=== PATIENT | male | born 1960 | race African-American/Black ===

== ENCOUNTER 2020-02-15 10:34 | Inpatient (IN) | payer MEDICARE, OTHER ==
[~2020-02-15] VITALS: Ht 182.9 cm; Wt 76.2 kg
[2020-02-15] MEDS ORDERED: IV NS 0.9% 500 ML BAG IV ONE (11:00)
[2020-02-15] MEDS ORDERED: LISI30TA4 PO (11:06)
[2020-02-15] MEDS ORDERED: AMLO10TA4 PO (11:06)
[2020-02-15] MEDS ORDERED: ESCI5TAB PO (11:06)
[2020-02-15] MEDS ORDERED: HYDR-4077 PO (11:06)
[2020-02-15] MEDS ORDERED: ATOR40TA PO (11:06)
[2020-02-15] MEDS ORDERED: DEXT1DRO3 OP (11:06)
[2020-02-15] MEDS ORDERED: PHEN60TA11 PO (11:06)
--- NOTE | 2020-02-15 11:11 | NUR ---
pt rec'd to er via [facility] FTF WEAKNESS IV SATARTED 20G RT WRIST VSSAWAITING EVALUATION BY ER PROVIDER. LABS DRAWN SENT TO LAB NS BOLUS INFUSING WELL
[2020-02-15 11:16] LABS: BASOPHILS # (AUTO) 0.1 /CMM (0.0-0.2); BASOPHILS % (AUTO) 1.6 % (0.0-2.0); EOSINOPHILS % (AUTO) 3.7 % (0.0-6.0); HEMATOCRIT 47 % (39-51); HEMOGLOBIN 14.8 g/dL (13.5-17.5); LYMPHOCYTES % (AUTO) 26.4 % (20.0-44.0); MEAN CORPUSCULAR HGB CONC 32 g/dl (31.0-36.0); MEAN CORPUSCULAR VOLUME 78 fL (80-96); MONOCYTES # (AUTO) 0.5 /CMM (0.1-1.30); MONOCYTES % (AUTO) 12.6 % (2.0-12.0); NEUTROPHILS # (AUTO) 2.1 /CMM (1.8-8.9); NEUTROPHILS % (AUTO) 55.7 % (43.0-81.0); PLATELET COUNT (AUTO) 201 /CMM (150-450); RED BLOOD CELL COUNT(AUTO) 6.01 MIL/uL (4.5-6.0); WHITE BLOOD COUNT (AUTO) 3.8 K/uL (4.3-11.0)
[2020-02-15 12:07] LABS: SERUM AMMONIA 46 umol/L (11-32)
[2020-02-15 12:13] LABS: CHLORIDE 106 mmol/L (98-107); POTASSIUM 4.4 mmol/L (3.5-5.1); SODIUM SERUM 141 mmol/L (136-145)
[2020-02-15 12:14] LABS: CALCIUM, SERUM 8.7 mg/dL (8.5-10.1); CARBON DIOXIDE 30 mmol/L (21-32); GLUCOSE 68 mg/dL (74-106); UREA NITROGEN, BLOOD 18 mg/dL (7-18)
[2020-02-15 12:15] LABS: ALANINE AMINOTRANSFERASE 29 U/L (12-78); ALBUMIN 3.4 g/dL (3.4-5.0); ALKALINE PHOSPHATASE 103 U/L (46-116); ASPARTATE AMINOTRANSFERASE 25 U/L (15-37); BILIRUBIN,TOTAL 0.3 mg/dL (0.2-1.0); TOTAL PROTEIN, SERUM 7.7 g/dL (6.4-8.2)
[2020-02-15 12:27] LABS: APPEARANCE,URINE CLEAR (CLEAR); BILIRUBIN,URINE NEGATIVE (NEGATIVE); BLOOD, URINE NEGATIVE Ery/uL (NEGATIVE); COLOR,URINE YELLOW (YELLOW); KETONES,URINE NEGATIVE (NEGATIVE); LEUKOCYTE ESTERASE ,URINE NEGATIVE (NEGATIVE); NITRITE, URINE NEGATIVE (NEGATIVE); PROTEIN,URINE NEGATIVE (NEGATIVE); UGLUCOSE NEGATIVE (NEGATIVE); UROBILINOGEN,URINE 0.2 EU/dL (0.2)
--- NOTE | 2020-02-15 12:35 | NUR ---
PAGED [facility].
[2020-02-15 12:37] LABS: THYROID STIMULATING HORMONE 1.298 uIU/mL (0.358-3.74)
--- NOTE | 2020-02-15 13:08 | NUR ---
CALLED NURSING SUP FOR M/S BED.
[2020-02-15] MEDS ORDERED: PHENOBARBITAL 30 MG TABLET ONE ×2 (13:24→16:39)
[2020-02-15] MEDS ORDERED: ATORVASTATIN 40 MG TABLET ONE (13:24)
[2020-02-15] MEDS ORDERED: AMLODIPINE BESYLATE 5 MG TABLET ONE (13:25)
[2020-02-15] MEDS ORDERED: IV D5/0.45 NACL 1,000 ML IV PRN (13:30)
[2020-02-15] MEDS ORDERED: Z GUARD REMEDY 2 OZ OINT TP PRN (13:30)
[2020-02-15] MEDS ORDERED: ACETAMINOPHEN 325 MG TABLET PO PRN (13:30)
[2020-02-15] MEDS ORDERED: MAGNESIUM HYDROXIDE 30 ML UDC PO PRN (13:30)
[2020-02-15] MEDS ORDERED: hydrALAZINE HCL 50 MG TABLET ONE (13:30)
[2020-02-15] MEDS ORDERED: hydrALAZINE HCL 50 MG TABLET PO PRN (13:30)
[2020-02-15] MEDS ORDERED: MAG HYDROX/AL HYDROX/SIMETH 30 ML UDC PO PRN (13:30)
[2020-02-15] MEDS ORDERED: HYDROCODONE/APAP 5/325MG TABLET PO PRN (13:30)
[2020-02-15] MEDS ORDERED: ONDANSETRON HCL/PF 4 MG/2 ML VIAL IVP PRN (13:30)
--- NOTE | 2020-02-15 13:34 | NUR ---
PT GIVEN LUNCH AND MEDS PER MD ORDER
[2020-02-15] MEDS: AMLODIPINE BESYLATE 10 MG TABLET PO SCH (13:55)
--- NOTE | 2020-02-15 15:04 | NUR ---
NURSING SUP GAVE M/S BED 205-2.
[2020-02-15] MEDS: ATORVASTATIN 40 MG TABLET PO SCH (15:15)
--- NOTE | 2020-02-15 15:21 | NUR ---
PT STABLE FOR TRANSFER TO FLOOR REPORT GIVEN TO YVON SCHILLING
[2020-02-15] MEDS ORDERED: PHENOBARBITAL 30 MG TABLET PO SCH ×3 (17:00)
--- NOTE | 2020-02-15 18:33 | NUR ---
ADMIT NOTES RECEIVED PATIENT FROM ER VIA GURNEY. PATIENT VITALS ARE WITHIN NORMAL LIMIT. SO SIGNS OF DISTRESS IN ROOM AIR. ORIENTED PATIENT TO HIS ROOM. CALL LIGHT WITHIN REACH SAFETY MEASURES ARE APPLIED BED LOCKED AND LOW POSITION. SIDE RAILS UP X 2. CALL LIGHT WITHIN REACH WILL CONTINUE TO MONITOR.
[2020-02-15 18:53] VITALS: BP 145/85
--- NOTE | 2020-02-15 18:57 | NUR ---
MS RN CLOSED NOTE PATIENT IS A/O X 3-4 WITH NO SIGNS OF ACUTE DISTRESS IN ROOM AIR. NO SIGNS OF PAIN AT THIS MOMENT. IV R FA #20 G INTACT RUNNING D5 1/2 NS @ 75 ML/HR. PATIENT KEPT CLEAN AND DRY. ALL NEEDS, CARE, TREATMENT AND MEDICATIONS ADMINISTERED ANTICIPATED PER ORDER. SAFETY MEASURES ARE APPLIED, BED IS LOW AND LOCKED POSITION. SIDE RAILS UP X 2 FOR SAFETY. CALL LIGHT WITHIN REACH. WILL ENDORSE TO THE NEXT TELEPHONE MAINTENANCE MECHANIC
--- NOTE | 2020-02-15 19:30 | NUR ---
RN Ms opening notes Received Pt from morning nurse. Pt is resting in bed comfortably. Pt is alert and orientedX3. Respiration is normal in room air. No SOB. No S/S of distress noted. IV sites at RFA# 20 is clean, intact and infusing well D5 1/2 NS at 75 ml/hr. Safety precautions is maintained. Bed at low position, brakes locked, side rails upX2 and call light is within reach. Will continue to monitor.
[2020-02-15 20:00] VITALS: BP 133/82
[2020-02-15] MEDS: ENOXAPARIN SODIUM 40 MG/0.4 ML DISP.SYRIN SQ SCH (20:35)
[2020-02-15] MEDS: PHENOBARBITAL 30 MG TABLET PO SCH (20:36)
[2020-02-15 22:20] VITALS: BP 133/82
--- NOTE | 2020-02-16 03:00 | NUR ---
RN MS notes Pt refused to have IV hydration. Explained risks and benefits. Pt keep refusing. Will continue to monitor.
[2020-02-16 06:32] LABS: BASOPHILS # (AUTO) 0.1 /CMM (0.0-0.2); BASOPHILS % (AUTO) 1.4 % (0.0-2.0); EOSINOPHILS % (AUTO) 3.5 % (0.0-6.0); HEMATOCRIT 43 % (39-51); HEMOGLOBIN 13.9 g/dL (13.5-17.5); LYMPHOCYTES # (AUTO) 1.1 /CMM (0.8-4.8); LYMPHOCYTES % (AUTO) 30.3 % (20.0-44.0); MEAN CORPUSCULAR HGB CONC 32 g/dl (31.0-36.0); MEAN CORPUSCULAR VOLUME 77 fL (80-96); MONOCYTES # (AUTO) 0.4 /CMM (0.1-1.30); MONOCYTES % (AUTO) 12.2 % (2.0-12.0); NEUTROPHILS # (AUTO) 1.9 /CMM (1.8-8.9); NEUTROPHILS % (AUTO) 52.6 % (43.0-81.0); PLATELET COUNT (AUTO) 198 /CMM (150-450); WHITE BLOOD COUNT (AUTO) 3.7 K/uL (4.3-11.0)
--- NOTE | 2020-02-16 06:50 | NUR ---
RN MS closing notes Pt is resting in bed comfortably. Pt is alert and orientedX3. Respiration is normal in room air. No SOB. No S/S of distress noted. IV sites at RFA# 20 is clean, intact and infusing well D5 1/2 NS at 75 ml/hr. VS is stable. Afebrile Routine meds were given as ordered. Kept Pt clean, dry and comfortable. Safety precautions is maintained. Bed at low position, brakes locked, side rails upX3 padded, HOB elevated and call light is within reach. Will endorse to morning nurse for MAHNAZ.
[2020-02-16 07:11] LABS: ALBUMIN 3.2 g/dL (3.4-5.0); BILIRUBIN,DIRECT 0.1 mg/dL (0.0-0.2); BILIRUBIN,TOTAL 0.3 mg/dL (0.2-1.0); CALCIUM, SERUM 8.4 mg/dL (8.5-10.1); CREATININE 0.9 mg/dL (0.6-1.3); PHOSPHORUS 3.2 mg/dL (2.5-4.9); POTASSIUM 3.8 mmol/L (3.5-5.1); TOTAL PROTEIN, SERUM 7.1 g/dL (6.4-8.2)
--- NOTE | 2020-02-16 07:15 | NUR ---
MS RN NOTES PATIENT IN BED EYES CLOSED, EASY TO AROUSE. ESPOND TO VEBAL AND TACTILE STIMULI. NO ACUTE DISTRESS NOTED. BREATHING UNLABORED. NO SOB NOTED. IV ACCESS PATENT AND INTACT, NO REDNESS, NO SWELLING NOTED. SAFETY MEASURES IN PLACE. CALL LIGHT WITHIN REACH. WILL CONTINUE TO MONITOR ACCORDINGLY.
[2020-02-16 08:00] VITALS: BP 168/111
--- NOTE | 2020-02-16 08:45 | NUR ---
MS RN NOTES PATIENT REFUSING IV FLUID CONNECTED, DR RO PRESENT ON THE FLOOR MADE AWARE, NO NEW ORDERS MADE.
[2020-02-16] MEDS: LISINOPRIL (20MG) 20 MG TABLET PO SCH (09:54)
[2020-02-16] MEDS: ESCITALOPRAM OXALATE (10 MG) 10 MG TABLET PO SCH (09:56)
[2020-02-16] MEDS: PHENOBARBITAL 30 MG TABLET PO SCH ×2 (10:00→16:12)
[2020-02-16] MEDS: POLYVINYL ALCOHOL 15 ML BOTTLE EACHEYE SCH (10:04)
--- NOTE | 2020-02-16 14:45 | NUR ---
MS RN NOTES PATIENT TRANSFER TO [address] [place] [address], REPORT GIVEN TO MEGHAN SCHILLING. ALERT ORIENTED X 3.NO ACUTE DISTRESS NOTED. BREATHING UNLABORED. NO SOB NOTED. IV ACCESS PATENT AND INTACT, NO REDNESS, NO SWELLING NOTED. NEEDS ATTENDED AND ANTICIPATED. BELONGINGS TAKEN WITH THE PATIENT.
--- NOTE | 2020-02-16 14:50 | NUR ---
MS RN NOTES RECEIVED PT PATIENT TRANSFERED FROM [facility] ALERT ORIENTED X 3.ON RA WITH NO ACUTE DISTRESS NOTED. BREATHING UNLABORED. NO SOB NOTED. IV ACCESS PATENT AND INTACT TO RFA WITH NO REDNESS OR SWELLING NOTED; NO SIGNS OF INFILTRATION. BED AT LOWEST POSITION WITH CALL LIGHT WITHIN REACH, WILL CONTINUE TO MONITOR PATIENT.
[2020-02-16 16:00] VITALS: BP 132/78
--- NOTE | 2020-02-16 19:18 | NUR ---
MS RN CLOSING NOTES PATIENT RESTING COMFORTABLY IN BED ALERT AND ORIENTED X 3, ON RA WITH NO ACUTE DISTRESS NOTED. NO SOB. BREATHING UNLABORED. IV ACCESS PATENT AND INTACT TO RFA WITH NO REDNESS OR SWELLING NOTED; NO SIGNS OF INFILTRATION. BED AT LOWEST POSITION WITH CALL LIGHT WITHIN REACH, WILL ENDORSE TO ONCOMING SHIFT.
--- NOTE | 2020-02-16 19:40 | NUR ---
MS SHAKIR OPEN NOTES PT IS WATCHING TV/ EATING IN BED. A/O X3. ON RA, NO SOB/ ACUTE RESPIRATORY DISTRESS NOTED. PT DENIES ANY PAIN AT THE MOMENT. BED IS IN LOWEST LOCKED POSITION WITH SIDE RAILS UP X3, SEMI FOWLERS. CALL LIGHT IS WITHIN REACH. WILL CONTINUE TO MONITOR.
[2020-02-16 20:00] VITALS: BP 140/96
[2020-02-16] MEDS: ENOXAPARIN SODIUM 40 MG/0.4 ML DISP.SYRIN SQ SCH (20:48)
[2020-02-16] MEDS: ATORVASTATIN 40 MG TABLET PO SCH ×2 (21:00→21:08)
--- NOTE | 2020-02-16 21:10 | NUR ---
MS RN NOTES PT REFUSED LIPITOR 40MG SCHEDULED AT 2200 DESPITE DISCUSSING BENEFITS. WILL CONTINUE TO MONITOR PT.
[2020-02-17 06:43] LABS: BASOPHILS % (AUTO) 1.2 % (0.0-2.0); EOSINOPHILS % (AUTO) 4.2 % (0.0-6.0); HEMATOCRIT 45 % (39-51); HEMOGLOBIN 14.4 g/dL (13.5-17.5); LYMPHOCYTES % (AUTO) 25.3 % (20.0-44.0); MEAN CORPUSCULAR HGB CONC 32 g/dl (31.0-36.0); MEAN CORPUSCULAR VOLUME 78 fL (80-96); MONOCYTES # (AUTO) 0.5 /CMM (0.1-1.30); MONOCYTES % (AUTO) 13.2 % (2.0-12.0); NEUTROPHILS # (AUTO) 2.3 /CMM (1.8-8.9); NEUTROPHILS % (AUTO) 56.1 % (43.0-81.0); PLATELET COUNT (AUTO) 198 /CMM (150-450); RED BLOOD CELL COUNT(AUTO) 5.76 MIL/uL (4.5-6.0); WHITE BLOOD COUNT (AUTO) 4.1 K/uL (4.3-11.0)
--- NOTE | 2020-02-17 06:48 | NUR ---
MS RN CLOSE NOTES PATIENT IS WATCHING TV IN BED. A/O X3. STABLE ON RA, NO SOB/ ACUTE RESPIRATORY DISTRESS NOTED. IV IN R FOREARM #20G IS PATENT AND INTACT. PT DENIES ANY PAIN AT THE MOMENT. BED IS IN LOWEST LOCKED POSITION WITH SIDE RAILS UP X3, SEMI FOWLERS. BED ALARM IS ON. CALL LIGHT IS WITHIN REACH. WILL ENDORSE TO AM NURSE.
[2020-02-17 07:52] LABS: CREATININE 0.9 mg/dL (0.6-1.3); MAGNESIUM 2.2 mg/dL (1.8-2.4); POTASSIUM 4.3 mmol/L (3.5-5.1)
[2020-02-17 08:00] VITALS: BP 145/94
[2020-02-17] MEDS: ESCITALOPRAM OXALATE (10 MG) 10 MG TABLET PO SCH (08:13)
[2020-02-17] MEDS: LISINOPRIL (20MG) 20 MG TABLET PO SCH (08:13)
[2020-02-17] MEDS: POLYVINYL ALCOHOL 15 ML BOTTLE EACHEYE SCH (08:13)
[2020-02-17] MEDS: AMLODIPINE BESYLATE 10 MG TABLET PO SCH (08:13)
[2020-02-17] MEDS: PHENOBARBITAL 30 MG TABLET PO SCH ×2 (08:13→17:00)
[2020-02-17 16:00] VITALS: BP 149/83
--- NOTE | 2020-02-17 18:39 | NUR ---
rn notes patient remains on room air, no sob noted, patient a/o x3. r fa 20 and is intact. patient refused morning medications but took night meds. bed at the lowest setting, call light within reach, side rails up x2.
--- NOTE | 2020-02-17 19:48 | NUR ---
RN OPENING NOTES PATIENT RECEIVED RESTING IN BED, A/O X 3. STABLE ON RA WITH BREATHING EVEN AND UNLABORED, NO SOB NOTED. NO SIGNS OF PAIN OR DISCOMFORT. IV LOCATED ON R WRIST. SAFETY PRECAUTIONS IN PLACE WITH BED IN LOWEST POSITION, CALL LIGHT WITHIN REACH, BREAKS ON, SIDE RAILS UP. WILL CONTINUE TO MONITOR THROUGHOUT THE NIGHT.
[2020-02-17 20:00] VITALS: BP 123/89
[2020-02-17] MEDS: ENOXAPARIN SODIUM 40 MG/0.4 ML DISP.SYRIN SQ SCH (21:14)
[2020-02-17] MEDS: ATORVASTATIN 40 MG TABLET PO SCH (21:17)
--- NOTE | 2020-02-17 21:17 | NUR ---
RN NOTES PT REFUSED LIPITOR 40MG SCHEDULED AT 2200 DESPITE DISCUSSING BENEFITS. WILL CONTINUE TO MONITOR PT.
--- NOTE | 2020-02-18 07:02 | NUR ---
RN CLOSING NOTES PATIENT RESTING IN BED, A/O X 3. STABLE ON RA WITH BREATHING EVEN AND UNLABORED, NO SOB NOTED. NO SIGNS OF PAIN OR DISCOMFORT. IV LOCATED ON R WRIST. SAFETY PRECAUTIONS IN PLACE WITH BED IN LOWEST POSITION, CALL LIGHT WITHIN REACH, BREAKS ON, SIDE RAILS UP. ALL NEEDS ATTENDED TO. PATIENT KEPT CLEAN AND DRY THROUGHOUT THE NIGHT. WILL ENDORSE TO ONCOMING SHIFT ABOUT MAHNAZ.
[2020-02-18 08:00] VITALS: BP 147/82
[2020-02-18] MEDS: POLYVINYL ALCOHOL 15 ML BOTTLE EACHEYE SCH (09:00)
[2020-02-18 09:24] VITALS: BP 147/82
[2020-02-18] MEDS: LISINOPRIL (20MG) 20 MG TABLET PO SCH (09:24)
[2020-02-18] MEDS: AMLODIPINE BESYLATE 10 MG TABLET PO SCH (09:24)
[2020-02-18] MEDS: ESCITALOPRAM OXALATE (10 MG) 10 MG TABLET PO SCH (09:24)
[2020-02-18] MEDS: PHENOBARBITAL 30 MG TABLET PO SCH (09:24)
--- NOTE | 2020-02-18 10:34 | NUR ---
PATIENT IS IN BED RESTING. PATIENT IS ALERT AD ORIENTED X2. PATIENT DOES NOT DISPLAY SIGNS OF DISTRESS, PAIN, OR SHORTNESS OF BREATH. PATIENT HAS A UNPRODUCTIVE DRY COUGH. AM CARE NEEDS MET. PATIENT REFUSED PHYSICAL THERAPY. BED IN LOW POSITION. CALL LIGHT IN REACH. TWO SIDE RAILS UP. WILL CONTINUE TO MONITOR PATIENT THROUGHOUT SHIFT.
--- NOTE | 2020-02-18 14:45 | NUR ---
Patient discharged from hospital via ambulance on a gurney. Patient alert and oriented x2. Patient does not display signs and symptoms of pain, distress, or shortness of breath. Care needs met. Discharge teaching given. Discharge paperwork and belongings sent to SNF with patient. IV removed. Report given to [facility].
== END 2020-02-18 14:45 | DRG 640 ==
LOC: ER 10:53 → MEDSG2 15:11 → MED 02-16 14:45
PROVIDERS: ADMIT Internal Medicine; ATTEND Internal Medicine
DX: E16.2 Hypoglycemia, unspecified (principal); G93.41 Metabolic encephalopathy; E43 Unspecified severe protein-calorie malnutrition; E72.20 Disorder of urea cycle metabolism, unspecified; I69.354 Hemiplegia and hemiparesis following cerebral infarction affecting left non-dominant side; F32.9 Major depressive disorder, single episode, unspecified; G40.909 Epilepsy, unspecified, not intractable, without status epilepticus; I25.10 Atherosclerotic heart disease of native coronary artery without angina pectoris; R62.7 Adult failure to thrive; D64.9 Anemia, unspecified; E78.5 Hyperlipidemia, unspecified; F29 Unspecified psychosis not due to a substance or known physiological condition; E88.09 Other disorders of plasma-protein metabolism, not elsewhere classified; Z68.22 Body mass index [BMI] 22.0-22.9, adult; J44.9 Chronic obstructive pulmonary disease, unspecified; N31.9 Neuromuscular dysfunction of bladder, unspecified; Z88.0 Allergy status to penicillin
CPT/HCPCS: 36415; 70450-TC; 71045-TC; 80048-TC; 80076-TC; 80184; 81000-TC; 82140-TC; 82962-TC; 83735-TC; 84100-TC; 84443-TC; 84484-TC; 85025-TC; 85730-TC; 87081-TC; 97112-TC; 97530-TC; G0378; J1650; J3490; U0003

== ENCOUNTER 2020-11-01 13:49 | Inpatient (IN) | payer MEDICARE, OTHER ==
[~2020-11-01] VITALS: Ht 172.7 cm; Wt 68.5 kg
[~2020-11-01 13:49] MED LIST: AMLO10TA4 PO; ATOR40TA PO; DEXT1DRO3 OP; ESCI5TAB PO; HYDR-4077 PO; LISI30TA4 PO; PHEN60TA11 PO
[2020-11-01 15:00] LABS: BASOPHILS % (AUTO) 0.8 % (0.0-2.0); EOSINOPHILS % (AUTO) 3.1 % (0.0-6.0); HEMATOCRIT 43 % (39-51); HEMOGLOBIN 13.7 g/dL (13.5-17.5); LYMPHOCYTES # (AUTO) 1.3 K/uL (0.8-4.8); LYMPHOCYTES % (AUTO) 32.1 % (20.0-44.0); MEAN CORPUSCULAR HGB CONC 32 g/dl (31.0-36.0); MEAN CORPUSCULAR VOLUME 78 fL (80-96); MONOCYTES # (AUTO) 0.4 K/uL (0.1-1.30); MONOCYTES % (AUTO) 9.9 % (2.0-12.0); NEUTROPHILS # (AUTO) 2.3 K/uL (1.8-8.9); NEUTROPHILS % (AUTO) 54.1 % (43.0-81.0); PLATELET COUNT (AUTO) 246 K/uL (150-450); RED BLOOD CELL COUNT(AUTO) 5.47 MIL/uL (4.5-6.0); WHITE BLOOD COUNT (AUTO) 4.2 K/uL (4.3-11.0)
--- NOTE | 2020-11-01 15:09 | NUR ---
DARY FROM SNF TO ER BED 6. AAOX1. NOT IN RESP DISTRESS. SENT BY THE PLATEN BUILDER UP FOR FURTHER EVALUATION OF WEAKNESS AND DIFFICULTY IN MOBILITY FOR THE PAST 3 DAYS. MD WAS AT THE BEDSIDE FOR EVAL. ORDERS RECEIVED, NOTED AND CARRIED OUT. IV LINE ESTABLISHED ON THE R HAND 20G, BLOOD DRAWN AND GIEVN TO PHLEB. URINE COLLECETD VIA IN AND OUT CATH WITH STRICT STERILE TECHNIQUE.
[2020-11-01 15:15] LABS: CALCIUM, SERUM 8.7 mg/dL (8.5-10.1); CARBON DIOXIDE 30 mmol/L (21-32); CHLORIDE 106 mmol/L (98-107); GLUCOSE 85 mg/dL (74-106); POTASSIUM 4.5 mmol/L (3.5-5.1); SODIUM SERUM 142 mmol/L (136-145); UREA NITROGEN, BLOOD 15 mg/dL (7-18)
[2020-11-01 15:21] LABS: ALANINE AMINOTRANSFERASE 31 U/L (12-78); ALBUMIN 3.2 g/dL (3.4-5.0); ALKALINE PHOSPHATASE 105 U/L (46-116); ASPARTATE AMINOTRANSFERASE 20 U/L (15-37); BILIRUBIN,DIRECT 0.1 mg/dL (0.0-0.2); BILIRUBIN,TOTAL 0.2 mg/dL (0.2-1.0); TOTAL PROTEIN, SERUM 7.5 g/dL (6.4-8.2)
[2020-11-01 15:25] LABS: BILIRUBIN,URINE NEGATIVE (NEGATIVE); COLOR,URINE DARK YELLOW (YELLOW); LEUKOCYTE ESTERASE ,URINE NEGATIVE (NEGATIVE); NITRITE, URINE NEGATIVE (NEGATIVE); PROTEIN,URINE NEGATIVE (NEGATIVE); UGLUCOSE NEGATIVE (NEGATIVE); UROBILINOGEN,URINE 0.2 EU/dL (0.2)
[2020-11-01 15:31] LABS: BACTERIA,URINE None seen /HPF (None Seen); RBC,URINE 0-2 /HPF (0-2); WBC,URINE 0-2 /HPF (0-3)
[2020-11-01 15:32] LABS: MUCUS,URINE Many /LPF (None Seen); SQUAMOUS EPITHELIAL CELL,UR 0-2 /HPF (None Seen)
--- NOTE | 2020-11-01 15:47 | NUR ---
BED 103
--- NOTE | 2020-11-01 16:10 | NUR ---
REPORT GIVEN TO SHAKIR AGOSTO FOR MAHNAZ
--- NOTE | 2020-11-01 16:32 | NUR ---
PT BEING TRANSPORTED TO UNIT ON [facility] WITH EMT AT BEDSIDE. PT IS IN STABLE CONDITION FOR TRANSPORT.
[2020-11-01 16:48] VITALS: BP 129/74
[2020-11-01] MEDS ORDERED: ONDANSETRON HCL/PF 4 MG/2 ML VIAL IVP PRN (17:00)
[2020-11-01] MEDS ORDERED: Z GUARD REMEDY 2 OZ OINT TP PRN (17:00)
[2020-11-01] MEDS ORDERED: MAG HYDROX/AL HYDROX/SIMETH 30 ML UDC PO PRN (17:00)
[2020-11-01] MEDS ORDERED: MAGNESIUM HYDROXIDE 30 ML UDC PO PRN (17:00)
[2020-11-01] MEDS ORDERED: ACETAMINOPHEN 325 MG TABLET PO PRN (17:00)
[2020-11-01] MEDS ORDERED: IV NS 0.9% 1,000 ML IV PRN (17:00)
--- NOTE | 2020-11-01 17:12 | NUR ---
MS RN NOTE RECEIVED PATIENT FROM ER WITH DX FAILURE TO THRIVE , ALERT WITH CONFUSION, ADMITTED UNDER CARE DR RO.LT HAND HL INTACT AND FLUSHED WELL , BED IN LOWEST AND LOCKED POSITION , CALL LIGHT WITHIN REACH, VS TAKEN .BELONGING CHECKED,ON RA NO SOB NOTED AT THIS TIME HOSPITAL ORIENTATION DONE WILL CONT TO MONITOR SAFETY MEASURE PROVIDED
--- NOTE | 2020-11-01 18:22 | NUR ---
MS RN NOTE FED BY MOTORCYCLE DELIVERER ,ALL NEEDS ATTENDED, STARTED ON IVF ORDERED ,BED IN LOWEST AND LOCKED POSITION, WILL CONT TO MONITOR CLOSELY
[2020-11-01] MEDS: ATORVASTATIN 40 MG TABLET PO SCH (22:56)
--- NOTE | 2020-11-02 01:14 | NUR ---
patient alert x2 nol c/o has iv infusing at 60 hr.has [address] hand patient likes to drank juices. patient incont. of urine.
[2020-11-02 08:00] VITALS: BP 140/101
--- NOTE | 2020-11-02 08:17 | NUR ---
Refused laboratory x2 occurrences this morning. Milton Self RN
[2020-11-02] MEDS: POLYVINYL ALCOHOL 15 ML BOTTLE EACHEYE SCH (10:06)
[2020-11-02] MEDS: ESCITALOPRAM OXALATE (10 MG) 10 MG TABLET PO SCH (10:07)
[2020-11-02] MEDS: LISINOPRIL (10MG) 10 MG TABLET PO SCH (10:07)
[2020-11-02] MEDS: AMLODIPINE BESYLATE 10 MG TABLET PO SCH (10:07)
[2020-11-02 13:34] LABS: BASOPHILS # (AUTO) 0.1 K/uL (0.0-0.2); BASOPHILS % (AUTO) 2.3 % (0.0-2.0); EOSINOPHILS % (AUTO) 3.2 % (0.0-6.0); HEMATOCRIT 46 % (39-51); HEMOGLOBIN 14.8 g/dL (13.5-17.5); LYMPHOCYTES % (AUTO) 25.4 % (20.0-44.0); MEAN CORPUSCULAR HGB CONC 32 g/dl (31.0-36.0); MEAN CORPUSCULAR VOLUME 78 fL (80-96); MONOCYTES # (AUTO) 0.4 K/uL (0.1-1.30); MONOCYTES % (AUTO) 10.8 % (2.0-12.0); NEUTROPHILS # (AUTO) 2.2 K/uL (1.8-8.9); NEUTROPHILS % (AUTO) 58.3 % (43.0-81.0); PLATELET COUNT (AUTO) 241 K/uL (150-450); RED BLOOD CELL COUNT(AUTO) 5.91 MIL/uL (4.5-6.0); WHITE BLOOD COUNT (AUTO) 3.8 K/uL (4.3-11.0)
[2020-11-02 15:02] LABS: CALCIUM, SERUM 8.7 mg/dL (8.5-10.1); CREATININE 1.1 mg/dL (0.6-1.3); MAGNESIUM 2.2 mg/dL (1.8-2.4); PHOSPHORUS 2.7 mg/dL (2.5-4.9); POTASSIUM 4.4 mmol/L (3.5-5.1)
[2020-11-02 16:00] VITALS: BP 136/92
[2020-11-02] MEDS: ASPIRIN EC 81 MG TABLET.DR PO SCH (16:12)
--- NOTE | 2020-11-02 19:30 | NUR ---
RN NOTE RECEIVED PATIENT IN BED. A/OX 1/2 PATIENT IS VERY CONFUSED, DELAYED SPEECH. TOLERATING ROOM AIR. RESPIRATIONS ARE EVEN AND UNLABORED. NO S/S SOB NOTED. NO C/O PAIN AT THIS TIME. IN NO APPARENT DISTRESS. IV ACCESS IN RIGHT [id number] RUNNING NS@60ML/HR. BED IS LOW AND LOCKED, HOB ELEVATED IN HIGH FOWLERS, SIDE RAILS UP X3 CALL LIGHT WITHIN REACH. WILL CONTINUE TO MONITOR THROUGHOUT SHIFT.
[2020-11-02 20:00] VITALS: BP 123/87
[2020-11-02] MEDS: ATORVASTATIN 40 MG TABLET PO SCH (21:27)
--- NOTE | 2020-11-03 06:28 | NUR ---
RN NOTE PATIENT RESTING IN BED. A/OX 1/. REMAINS TOLERATING ROOM AIR. NO RESP DISTRESS. NO C/O PAIN. NO DISTRESS. IV ACCESS PULLED OUT. BED REMAINS LOW AND LOCKED, HOB ELEVATED IN HIGH FOWLERS, SIDE RAILS UP X3 CALL LIGHT WITHIN REACH. WILL ENDORSE TO INCOMING SHIFT,
[2020-11-03 07:12] LABS: BASOPHILS # (AUTO) 0.1 K/uL (0.0-0.2); BASOPHILS % (AUTO) 1.9 % (0.0-2.0); EOSINOPHILS % (AUTO) 2.8 % (0.0-6.0); HEMATOCRIT 42 % (39-51); HEMOGLOBIN 13.8 g/dL (13.5-17.5); LYMPHOCYTES # (AUTO) 1.1 K/uL (0.8-4.8); LYMPHOCYTES % (AUTO) 24.6 % (20.0-44.0); MEAN CORPUSCULAR HGB CONC 33 g/dl (31.0-36.0); MEAN CORPUSCULAR VOLUME 77 fL (80-96); MONOCYTES # (AUTO) 0.4 K/uL (0.1-1.30); MONOCYTES % (AUTO) 10.2 % (2.0-12.0); NEUTROPHILS # (AUTO) 2.6 K/uL (1.8-8.9); NEUTROPHILS % (AUTO) 60.5 % (43.0-81.0); PLATELET COUNT (AUTO) 232 K/uL (150-450); RED BLOOD CELL COUNT(AUTO) 5.45 MIL/uL (4.5-6.0); WHITE BLOOD COUNT (AUTO) 4.3 K/uL (4.3-11.0)
[2020-11-03 07:33] LABS: CALCIUM, SERUM 8.7 mg/dL (8.5-10.1); CREATININE 0.9 mg/dL (0.6-1.3)
[2020-11-03 08:00] VITALS: BP 154/98
[2020-11-03] MEDS: LISINOPRIL (10MG) 10 MG TABLET PO SCH (09:41)
[2020-11-03] MEDS: ESCITALOPRAM OXALATE (10 MG) 10 MG TABLET PO SCH (09:42)
[2020-11-03] MEDS: ASPIRIN EC 81 MG TABLET.DR PO SCH (09:42)
[2020-11-03] MEDS: AMLODIPINE BESYLATE 10 MG TABLET PO SCH (09:42)
[2020-11-03] MEDS: POLYVINYL ALCOHOL 15 ML BOTTLE EACHEYE SCH (09:44)
[2020-11-03] MEDS ORDERED: ASPI-1420 PO (11:46)
[2020-11-03 16:00] VITALS: BP 109/92
--- NOTE | 2020-11-03 19:20 | NUR ---
RN NOTE RECEIVED PATIENT IN BED RESTING ALERT ORIENTED X1 VERBALLY RESPONSIVE ON ROOM AIR O2:97%,NO IV ACCESS,INCONTINENT TO BOWEL/BLADDER,SAFETY MEASURE IMPLEMENT ,BED IN LOW POSITION LOCKED /BED ALARM IS ON,CALL LIGHT WITHIN REACH,CONTINUE TO MONITOR.
[2020-11-03 20:00] VITALS: BP 108/69
[2020-11-03] MEDS: ATORVASTATIN 40 MG TABLET PO SCH (22:05)
[2020-11-04 04:00] VITALS: BP 108/69
--- NOTE | 2020-11-04 06:29 | NUR ---
RN NOTE PATIENT REMAINS ON ALERT CONFUSED VERBALLY RESPONSIVE NO SOB NOT ACUTE DISTRESS NOTED,ALL DUE MEDS GIVEN MD ORDERED,NO IV ACCESS,KEPT CLEAN AND DRY ALL THE TIME,KEPT COMFORTABLE,KEPT CALL LIGHT WITHIN REACH,ALL NEEDS MET.ENDORSE NEXT COMING SHIFT FOR CONTINUATION OF CARE.
--- NOTE | 2020-11-04 07:50 | NUR ---
MS/RN OPENING NOTE RECEIVED PATIENT IN BED, AWAKE, NON-VERBAL AT THIS TIME. STABLE ON ROOM AIR. NO RESPIRATORY DISTRESS NOTED. NO S/S OF DISCOMFORTS NOTED. NO IV ACCESS AT THIS TIME. SAFETY PRECAUTIONS OBSERVED: BED LOCKED ON LOWEST POSITION, SIDE RAILS UPX3, HOB ELEVATED, CALL LIGHT WITHIN REACH. WILL CONTINUE TO MONITOR PATIENT.
[2020-11-04] MEDS: ESCITALOPRAM OXALATE (10 MG) 10 MG TABLET PO SCH (09:37)
[2020-11-04] MEDS: ASPIRIN EC 81 MG TABLET.DR PO SCH (09:37)
[2020-11-04] MEDS: LISINOPRIL (10MG) 10 MG TABLET PO SCH (09:38)
[2020-11-04] MEDS: POLYVINYL ALCOHOL 15 ML BOTTLE EACHEYE SCH (09:38)
[2020-11-04] MEDS: AMLODIPINE BESYLATE 10 MG TABLET PO SCH (09:38)
[2020-11-04 12:05] VITALS: BP 118/73
--- NOTE | 2020-11-04 14:30 | NUR ---
MS/MARRIAGE THERAPIST NOTES PATIENT IS MEDICALLY STABLE. DR. PÉREZ ORDERED A DISCHARGE BACK TO SNF. PATIENT IS ALERT AND ORIENTED X1-2, COOPERATIVE WITH CARE. ALL NEEDS MET. DISCHARGE PAPERS SIGNED AND ALL BELONGINGS ACCOUNTED FOR. NON-EMERGENCY TRANSPORTATION PICKED UP PATIENT VIA GURNEY AND WILL BE TRANSFERRED TO [facility].
== END 2020-11-04 15:10 | DRG 640 ==
LOC: ER 13:55 → MEDSG1 16:11
PROVIDERS: ADMIT Internal Medicine; ATTEND Student in an Organized Health Care Education/Training Program
DX: E86.0 Dehydration (principal); G93.41 Metabolic encephalopathy; R62.7 Adult failure to thrive; J44.9 Chronic obstructive pulmonary disease, unspecified; G40.909 Epilepsy, unspecified, not intractable, without status epilepticus; E78.5 Hyperlipidemia, unspecified; Z86.73 Personal history of transient ischemic attack (TIA), and cerebral infarction without residual deficits; Z20.822 Contact with and (suspected) exposure to COVID-19; I10 Essential (primary) hypertension; Z88.0 Allergy status to penicillin; Z68.23 Body mass index [BMI] 23.0-23.9, adult
CPT/HCPCS: 36415; 80048-TC; 80061-TC; 80076-TC; 81001; 83735-TC; 84100-TC; 84484-TC; 85025-TC; 87081-TC; 87086-TC; G0378; J7030; U0003

== ENCOUNTER → 2022-02-08 | Emergency (ER) | payer MEDICARE, OTHER ==
[~2022-02-08] VITALS: Ht 167.6 cm; Wt 65.8 kg
[~2022-02-08] MED LIST changes: +ACET-868 PO; +ASCO-352 PO; +ASPI-1169 PO; +ASPI-1420 PO; +CHOL100043 PO; +MELA5TAB PO; +NALOXONE PREFILLED SYRINGE 2 MG/2 ML SYRINGE ONE; +POLY15DR40 EACHEYE
--- NOTE | 2022-02-08 16:00 | NUR ---
juan antonio, from snf, c/o generalized weakness since yesterday. PT IS ALERT, ABLE TO INTERACT W/ ENVIRONMENT, ANSWER QUESTIONS, RECOUNT RIDE OVER, ENDORSES HUNGER.
[2022-02-08 17:08] LABS: BASOPHILS % (AUTO) 0.5 % (0.0-2.0); EOSINOPHILS % (AUTO) 3.1 % (0.0-6.0); HEMATOCRIT 47 % (39-51); LYMPHOCYTES % (AUTO) 29.7 % (20.0-44.0); MEAN CORPUSCULAR HGB CONC 32 g/dl (31.0-36.0); MEAN CORPUSCULAR VOLUME 77 fL (80-96); MONOCYTES # (AUTO) 0.3 K/uL (0.1-1.30); NEUTROPHILS # (AUTO) 1.9 K/uL (1.8-8.9); NEUTROPHILS % (AUTO) 57.7 % (43.0-81.0); PLATELET COUNT (AUTO) 189 K/uL (150-450); RED BLOOD CELL COUNT(AUTO) 6.11 MIL/uL (4.5-6.0); WHITE BLOOD COUNT (AUTO) 3.3 K/uL (4.3-11.0)
[2022-02-08 17:23] LABS: ALBUMIN 3.8 g/dL (3.4-5.0); BILIRUBIN,DIRECT 0.1 mg/dL (0.0-0.2); BILIRUBIN,TOTAL 0.3 mg/dL (0.2-1.0); CALCIUM, SERUM 9.2 mg/dL (8.5-10.1); CREATININE 0.9 mg/dL (0.6-1.3); POTASSIUM 3.7 mmol/L (3.5-5.1)
--- NOTE | 2022-02-08 18:11 | NUR ---
CALLED AND SPOKE TYRONE FLOYD FROM [facility]. GOING BACK TO [facility]. ETA 70MIN.
--- NOTE | 2022-02-08 18:26 | NUR ---
RN CALLED [facility], NO ONE PICKED UP. RN WILL ATTEMPT TO CALL AGAIN IN 20 MIN.
--- NOTE | 2022-02-08 18:30 | NUR ---
SHAKIR CALLED AND GAVE REPORT TO ASIHA AT [facility]
[2022-02-08 18:38] VITALS: BP 131/90
--- NOTE | 2022-02-08 18:42 | NUR ---
[facility] HERE TO REPLACER PT. ID REMOVED, IV REMOVED, CANNULA INTACT.
== END ==
LOC: ER 14:45
DX: R53.1 Weakness (principal); E78.5 Hyperlipidemia, unspecified; J44.9 Chronic obstructive pulmonary disease, unspecified; Z88.0 Allergy status to penicillin; Z88.8 Allergy status to other drugs, medicaments and biological substances; Z79.899 Other long term (current) drug therapy
CPT/HCPCS: 36415; 71045-TC; 80048-TC; 80076-TC; 82962-TC; 83690-TC; 85025-TC; J2310

== ENCOUNTER 2022-02-09 12:26 | Inpatient (IN) | payer MEDICARE, OTHER ==
[~2022-02-09] VITALS: Ht 167.6 cm; Wt 65.8 kg
[~2022-02-09 12:26] MED LIST changes: -ASPI-1420 PO; -ATOR40TA PO; -DEXT1DRO3 OP; -ESCI5TAB PO; -NALOXONE PREFILLED SYRINGE 2 MG/2 ML SYRINGE ONE
--- NOTE | 2022-02-09 13:10 | NUR ---
MOVE SHEET SUBMITTED
--- NOTE | 2022-02-09 13:14 | NUR ---
IV LINE ESTABLISHED ON RAC #20, BLOOD DRAWN AND COLLECTED BY PHLEB AT BEDSIDE.
[2022-02-09 13:21] LABS: BASOPHILS % (AUTO) 1.5 % (0.0-2.0); HEMATOCRIT 49 % (39-51); HEMOGLOBIN 15.8 g/dL (13.5-17.5); LYMPHOCYTES % (AUTO) 32.9 % (20.0-44.0); MEAN CORPUSCULAR HGB CONC 32 g/dl (31.0-36.0); MEAN CORPUSCULAR VOLUME 77 fL (80-96); MONOCYTES # (AUTO) 0.3 K/uL (0.1-1.30); MONOCYTES % (AUTO) 10.7 % (2.0-12.0); NEUTROPHILS # (AUTO) 1.6 K/uL (1.8-8.9); NEUTROPHILS % (AUTO) 51.9 % (43.0-81.0); PLATELET COUNT (AUTO) 209 K/uL (150-450); RED BLOOD CELL COUNT(AUTO) 6.36 MIL/uL (4.5-6.0); WHITE BLOOD COUNT (AUTO) 3.1 K/uL (4.3-11.0)
[2022-02-09 13:40] LABS: ALANINE AMINOTRANSFERASE 35 U/L (12-78); ALBUMIN 3.8 g/dL (3.4-5.0); ALKALINE PHOSPHATASE 96 U/L (46-116); ASPARTATE AMINOTRANSFERASE 23 U/L (15-37); BILIRUBIN,DIRECT 0.1 mg/dL (0.0-0.2); BILIRUBIN,TOTAL 0.2 mg/dL (0.2-1.0); CALCIUM, SERUM 9.1 mg/dL (8.5-10.1); CARBON DIOXIDE 32 mmol/L (21-32); CHLORIDE 105 mmol/L (98-107); GLUCOSE 73 mg/dL (74-106); POTASSIUM 4.2 mmol/L (3.5-5.1); SODIUM SERUM 142 mmol/L (136-145); TOTAL PROTEIN, SERUM 8.2 g/dL (6.4-8.2); UREA NITROGEN, BLOOD 17 mg/dL (7-18)
--- NOTE | 2022-02-09 14:00 | NUR ---
URINAL PROVIDED AT BEDSIDE FOR PT; UNABLE TO PROVIDE URINE AT THIS TIME
--- NOTE | 2022-02-09 14:51 | NUR ---
ROOM 313-2
--- NOTE | 2022-02-09 15:01 | NUR ---
PT REPORT GIVEN TO SHAKIR ESPARZA
[2022-02-09] MEDS ORDERED: ACETAMINOPHEN 325 MG TABLET PO PRN ×2 (15:30)
[2022-02-09] MEDS: ENOXAPARIN SODIUM 40 MG/0.4 ML DISP.SYRIN SQ SCH (15:30)
[2022-02-09] MEDS ORDERED: ONDANSETRON HCL/PF 4 MG/2 ML VIAL IVP PRN (15:30)
[2022-02-09] MEDS ORDERED: Z GUARD REMEDY 4 OZ OINT TP PRN (15:30)
[2022-02-09] MEDS ORDERED: MAGNESIUM HYDROXIDE 30 ML UDC PO PRN (15:30)
[2022-02-09] MEDS ORDERED: MAG HYDROX/AL HYDROX/SIMETH 30 ML UDC PO PRN (15:30)
--- NOTE | 2022-02-09 15:53 | NUR ---
PT TRANSFERRED TO UNIT VIA GURNEY. WARM HANDOFF GIVEN TO RN ASSIGNED.
[2022-02-09] MEDS ORDERED: PHENOBARBITAL 60 MG TABLET PO SCH (17:00)
[2022-02-09] MEDS: PHENOBARBITAL 30 MG TABLET PO SCH (17:45)
[2022-02-09] MEDS: hydrALAZINE HCL 50 MG TABLET PO SCH (17:45)
[2022-02-09] MEDS: CHOLECALCIFEROL 1,000 UNIT TABLET (VIT D3) PO SCH (17:46)
[2022-02-09] MEDS: ASCORBIC ACID 500 MG TABLET PO SCH (17:46)
[2022-02-09] MEDS: POLYVINYL ALCOHOL 15 ML BOTTLE EACHEYE SCH (18:01)
--- NOTE | 2022-02-09 18:59 | NUR ---
RN CLOSING NOTE PATIENT A/O X1-2 WITH MINIMAL ABILITY TO PROPERLY VERBALIZE NEEDS. ADMITTED TO UNIT [facility] ED @ 1600 VIA GURNEY. TRANFERRED BY AUTOMOBILE MECHANIC HELPER AND OTHER NURSING ASSISTANCE. IV ACCESS TO LAC # 20 IN TACT AND PATENT. NO S/SX OF BLEEDING OR TRAUMA TO SITE. ALL SKIN INTACT, EXCEPT DISCOLORATION TO ANAL AREA. PATIENT REFUSED TO HAVE PICTURE TAKEN UPON ADMISSION. WILL ENDORSE TO RECEIVING NURSE. WOUND CONSULT PLACED. WILL FOLLOW UP. PATIENT TOLERATED DINNER WELL ON SHIFT. SAFETY MEASURES INTACT WITH BED LOW AND LOCKED, HOB @ 30 DEGREES, SIDERAIL UP X2, CALL LIGHT WITHIN REACH. WILL CONT TO MONITOR.
--- NOTE | 2022-02-09 19:30 | NUR ---
MS RN OPENING NOTES RECEIVED PATIENT LYING IN BED COMFORTABLY. A/O X1-2, DIFFICULTY SPEAKING NOTED. BREATHING EVEN AND NON-LABORED ON ROOM AIR. PATIENT GETS AGITATED AND GRABS STAFF'S ARM WHILE TRYING TO GIVE CARE. NO PAIN OR DISCOMFORT NOTED. HAS RIGHT ANTECUBITAL IV ACCESS #20G, COVERED WITH GAUZE AND SALINE LOCKED. NO S/S OF INFILTRATION NOTED. CLEANED AND ORGANIZED AREA ACCORDINGLY. ABLE TO SWALLOW APPLE SAUCE WITHOUT DIFFICULTY. EATS INDEPENDENTLY. SAFETY PRECAUTIONS IN PLACE: BED LOW AND LOCKED, SIDE RAILS UP X2, CALL LIGHT WITHIN REACH. WILL CONTINUE POC.
[2022-02-09 20:00] VITALS: BP 196/91
--- NOTE | 2022-02-09 20:23 | NUR ---
MS RN NOTES PATIENT BP 196/91, UNABLE TO RE-TAKE, PATIENT UNCOOPERATIVE AND AGITATED. NOTIFIED ASHLEY SHEA WITH NEW ORDER HYDRALAZINE 10 MG Q4H PRN TO KEEP BP <160. NOTED AND CARRIED OUT.
[2022-02-09] MEDS: hydrALAZINE HCL IV 20 MG VIAL IV PRN (20:32)
[2022-02-09] MEDS: IV D5/0.45 NACL 1,000 ML IV PRN (21:38)
[2022-02-09] MEDS ORDERED: MELATONIN 3 MG TABLET PO SCH (22:00)
[2022-02-10] MEDS: hydrALAZINE HCL 50 MG TABLET PO SCH ×4 (00:16→18:16)
--- NOTE | 2022-02-10 07:00 | NUR ---
MS RN CLOSING NOTES PATIENT LYING IN BED ASLEEP, EASY TO AROUSE. A/O X1-2. NO SOB OR NOTED, TOLERATING ROOM AIR WELL. REFUSED MEDS AND BLOOD DRAW THIS AM. NOT IN APPARENT DISTRESS. NO S/S OF PAIN NOTED. AFEBRILE. HAS RIGHT ANTECUBITAL IV ACCESS #20G WITH D5 1/2 NS RUNNING AT 75 ML/HR. INTACT, PATENT AND FLUSHING. SKIN CARE RENDERED. ALL DUE MEDS GIVEN AND NEEDS ATTENDED. SAFETY PRECAUTIONS MAINTAINED. WILL ENDORSE TO NEXT SHIFT FOR MAHNAZ.
--- NOTE | 2022-02-10 07:47 | NUR ---
MS RN OPENING NOTES RECEIVED PATIENT LYING IN BED COMFORTABLY. A/O X1-2, DIFFICULTY SPEAKING NOTED. ROOM AIR WITH NO SOB OR DISTRESS . NO C/O PAIN OR DISCOMFORT NOTED. HAS RAC IV ACCESS #20G WITH D5 1/2 NS @ 75 ML /HR , COVERED WITH GAUZE . SAFETY PRECAUTIONS IN PLACE: BED IN LOWEST POSITION AND LOCKED AT ALL TIMES , SIDE RAILS UP X2, CALL LIGHT WITHIN REACH. WILL CONTINUE TO MONITOR .
[2022-02-10] MEDS: ASCORBIC ACID 500 MG TABLET PO SCH ×2 (08:56→18:03)
[2022-02-10] MEDS: AMLODIPINE BESYLATE 10 MG TABLET PO SCH (08:56)
[2022-02-10] MEDS: PHENOBARBITAL 30 MG TABLET PO SCH ×2 (08:56→18:03)
[2022-02-10] MEDS: LISINOPRIL (10MG) 10 MG TABLET PO SCH (08:56)
[2022-02-10] MEDS: ASPIRIN 81 MG TAB.CHEW PO SCH (08:56)
[2022-02-10] MEDS: CHOLECALCIFEROL 1,000 UNIT TABLET (VIT D3) PO SCH ×3 (08:56→18:02)
[2022-02-10] MEDS: POLYVINYL ALCOHOL 15 ML BOTTLE EACHEYE SCH ×2 (09:00→17:00)
[2022-02-10 09:01] VITALS: BP 144/84
[2022-02-10] MEDS: IV D5/0.45 NACL 1,000 ML IV PRN (11:39)
[2022-02-10] MEDS: ENOXAPARIN SODIUM 40 MG/0.4 ML DISP.SYRIN SQ SCH (15:55)
[2022-02-10 16:01] VITALS: BP_SYST 122; BP_SYST 170; BP_DIAS 109; BP_DIAS 77
[2022-02-10] MEDS: hydrALAZINE HCL IV 20 MG VIAL IV PRN (16:21)
--- NOTE | 2022-02-10 16:31 | NUR ---
RN NOTES PATIENT NOTED WITH BP OF 170/109 AND HR OF 64 AND WITH PARN IV MEDS OF HYDRALAZINE 10 MG GIVEN ORDERED WILL MONITOR FOR ANY CHANGES
--- NOTE | 2022-02-10 18:50 | NUR ---
MS RN CLOSING NOTES PATIENT LYING IN BED COMFORTABLY. A/O X1-2, DIFFICULTY SPEAKING NOTED. ROOM AIR WITH NO SOB OR DISTRESS . NO C/O PAIN OR DISCOMFORT NOTED. HAS RAC IV ACCESS #20G WITH D5 1/2 NS @ 75 ML /HR , COVERED WITH GAUZE . ALL DUE MEDS GIVEN ORDERED , AND PATIENT REFUSED LAB DRAW OFFERED 3X AND STILL REFUSING , NOTED WITH BP OF 170 /109 AND HYDRALAZINE IV GIVEN 10 MG ORDERED . SAFETY PRECAUTIONS IN PLACE: BED IN LOWEST POSITION AND LOCKED AT ALL TIMES , SIDE RAILS UP X2, CALL LIGHT WITHIN REACH. WILL CONTINUE TO MONITOR .
--- NOTE | 2022-02-10 19:30 | NUR ---
MS RN OPENING NOTE RECEIVED PATIENT LYING IN BED COMFORTABLY. A/O X1-2, WITH DIFFICULTY SPEAKING. PT ON ROOM AIR, TOLERATING RA WELL. NO SOB OR ACUTE DISTRESS NOTED. NO C/O PAIN OR DISCOMFORT AT THIS TIME. PT HAS RIGHT AC IV ACCESS #20G WITH D5 1/2 NS RUNNING AT 75 ML /HR. SAFETY PRECAUTIONS IN PLACE: BED LOCKED, IN LOWEST POSITION, SIDE RAILS UP X2, CALL LIGHT WITHIN REACH. WILL CONTINUE TO MONITOR. Addendum: 02/11/22 at 0802 by LEATHA KNUTSON RN ERROR
[2022-02-10 20:40] VITALS: BP 136/93
[2022-02-10 21:33] LABS: WHITE BLOOD COUNT (AUTO) 4.9 K/uL (4.3-11.0)
[2022-02-10 21:34] LABS: BASOPHILS # (AUTO) 0.1 K/uL (0.0-0.2); BASOPHILS % (AUTO) 1.2 % (0.0-2.0); EOSINOPHILS % (AUTO) 2.6 % (0.0-6.0); HEMATOCRIT 46 % (39-51); HEMOGLOBIN 14.7 g/dL (13.5-17.5); LYMPHOCYTES # (AUTO) 1.3 K/uL (0.8-4.8); LYMPHOCYTES % (AUTO) 26.3 % (20.0-44.0); MEAN CORPUSCULAR HGB CONC 32 g/dl (31.0-36.0); MEAN CORPUSCULAR VOLUME 77 fL (80-96); MONOCYTES # (AUTO) 0.7 K/uL (0.1-1.30); MONOCYTES % (AUTO) 14.8 % (2.0-12.0); NEUTROPHILS # (AUTO) 2.7 K/uL (1.8-8.9); NEUTROPHILS % (AUTO) 55.1 % (43.0-81.0); PLATELET COUNT (AUTO) 189 K/uL (150-450); RED BLOOD CELL COUNT(AUTO) 5.97 MIL/uL (4.5-6.0)
[2022-02-10 21:50] LABS: ALBUMIN 3.2 g/dL (3.4-5.0); BILIRUBIN,TOTAL 0.2 mg/dL (0.2-1.0); CALCIUM, SERUM 8.6 mg/dL (8.5-10.1); CREATININE 0.9 mg/dL (0.6-1.3); MAGNESIUM 2.2 mg/dL (1.8-2.4); PHOSPHORUS 2.9 mg/dL (2.5-4.9); POTASSIUM 4.1 mmol/L (3.5-5.1)
[2022-02-11] MEDS: hydrALAZINE HCL 50 MG TABLET PO SCH ×5 (00:13→17:02)
--- NOTE | 2022-02-11 07:15 | NUR ---
MS RN OPENING NOTES RECEIVED PT IN BED ASLEEP, EASILY AWAKEN BY STIMULI. A/O 1 NO SOB OR CARDIAC DISTRESS NOTED. NO IV ACCESS NOTED. PATIENT REFUSING IV INSERTION. KEPT RESTED AND COMFORTABLE. SEIZURE, FALL AND ASPIRATION PRECAUTION.MAINTAINED SAFETY PRECAUTIONS: BED IN LOWEST AND LOCKED POSITION, SIDE RAILS UP X 2 CALL LIGHT IN EASY REACH FOR HELP. WILL MONITOR ACCORDINGLY.
--- NOTE | 2022-02-11 07:25 | NUR ---
MS RN CLOSING NOTE PATIENT LYING IN BED AWAKE. A/O X1-2. NO SOB, NO ACUTE DISTRESS NOTED. TOLERATING ROOM AIR WELL. REFUSED MED HYDRALAZINE THIS AM. PT'S BP: 136/90, HR: 53. NO S/S OF PAIN NOTED. PT PULLED IV ACCESS THIS MORNING. SKIN CARE RENDERED. ALL DUE MEDS GIVEN AND NEEDS ATTENDED. SAFETY PRECAUTIONS IN PLACE: BED IN LOW POSITION, SIDE RAILS UP X 3, CALL LIGHT WITHIN REACH . WILL ENDORSE TO NEXT SHIFT NURSE FOR MAHNAZ.
[2022-02-11 08:00] VITALS: BP 146/94
--- NOTE | 2022-02-11 08:05 | NUR ---
WOUND CARE CONSULT: PT SLEEPING SOUNDLY AT THIS TIME. PER NURSING STAFF, PT HAS UNEVEN SKIN PIGMENTATION AND NURSE STATES THAT PT WAS PREVIOUSLY COMBATIVE. WILL SEE PRN.
[2022-02-11 08:36] VITALS: BP 146/94
[2022-02-11] MEDS: CHOLECALCIFEROL 1,000 UNIT TABLET (VIT D3) PO SCH ×3 (08:52→16:37)
[2022-02-11] MEDS: PHENOBARBITAL 30 MG TABLET PO SCH ×2 (08:52→16:37)
[2022-02-11] MEDS: LISINOPRIL (10MG) 10 MG TABLET PO SCH (08:53)
[2022-02-11] MEDS: ASCORBIC ACID 500 MG TABLET PO SCH ×2 (08:54→16:37)
[2022-02-11] MEDS: AMLODIPINE BESYLATE 10 MG TABLET PO SCH (08:54)
[2022-02-11] MEDS: POLYVINYL ALCOHOL 15 ML BOTTLE EACHEYE SCH ×2 (08:55→16:42)
[2022-02-11] MEDS: ASPIRIN 81 MG TAB.CHEW PO SCH (08:55)
--- NOTE | 2022-02-11 09:00 | NUR ---
RN NOTES: PATIENT REFUSED IV INSERTION, REFUSED ENOXAPARIN SHOT,EXPLAINED THE RISK AND BENEFITS. AM MEDS CRUSHED AND MIXED TO APPLE SAUCE.
[2022-02-11] MEDS: ENOXAPARIN SODIUM 40 MG/0.4 ML DISP.SYRIN SQ SCH (15:44)
[2022-02-11 16:00] VITALS: BP 133/81
[2022-02-11 16:32] VITALS: BP 152/88
--- NOTE | 2022-02-11 19:07 | NUR ---
MS RN CLOSING NOTES PATIENT IN BED ASLEEP, EASILY AWAKEN BY STIMULI. A/O 1 NO SOB OR CARDIAC DISTRESS NOTED. NO IV ACCESS NOTED-PATIENT KEPT REFUSING. KEPT RESTED AND COMFORTABLE. SEIZURE, FALL AND ASPIRATION PRECAUTION.MAINTAINED SAFETY PRECAUTIONS: BED IN LOWEST AND LOCKED POSITION, SIDE RAILS UP X 2 CALL LIGHT IN EASY REACH FOR HELP. WILL MONITOR ACCORDINGLY. ENDORSED TO NOC SHIFT FOR MAHNAZ.
--- NOTE | 2022-02-11 19:40 | NUR ---
MS RN OPENING NOTE RECEIVED PT IN BED AWAKE. PT A/O X 1. NO SOB OR CARDIAC DISTRESS NOTED. PT HAS NO IV ACCESS AT THIS TIME. PATIENT REFUSING IV INSERTION. SEIZURE, FALL AND ASPIRATION PRECAUTIONS IN PLACE. SAFETY PRECAUTIONS OBSERVED: BED IN LOWEST AND LOCKED POSITION, SIDE RAILS UP X 2, CALL LIGHT WITHIN EASY REACH. WILL CONTINUE TO MONITOR PT.
[2022-02-11 20:00] VITALS: BP 154/80
[2022-02-12] MEDS: hydrALAZINE HCL 50 MG TABLET PO SCH ×4 (00:15→18:22)
--- NOTE | 2022-02-12 06:00 | NUR ---
MS RN NOTE PT REFUSED MED, HYDRALAZINE. PT'S BP: 117/81, HR: 68.
--- NOTE | 2022-02-12 07:20 | NUR ---
MS RN CLOSING NOTE PATIENT SLEEPING IN BED . A/O X1-2. NO SOB, NO ACUTE DISTRESS NOTED. TOLERATING ROOM AIR WELL. NO S/S OF PAIN NOTED. PT HAS NO IV ACCESS. PT HAS BEEN REFUSING IV ACCESS INSERTION. SKIN CARE RENDERED. ALL DUE MEDS GIVEN AND NEEDS ATTENDED. SAFETY PRECAUTIONS IN PLACE: BED IN LOW POSITION, SIDE RAILS UP X 3, CALL LIGHT WITHIN REACH . WILL ENDORSE TO NEXT SHIFT NURSE FOR MAHNAZ.
--- NOTE | 2022-02-12 07:25 | NUR ---
RN OPENING NOTES PATIENT IN BED, ALERT ORIENTED X 2 . NO ACUTE DISTRESS NOTED. BREATHING UNLABORED, NO SOB NOTED. NO FACIAL GRIMACING NOTED. SAFETY MEASURES IN PLACE, CALL LIGHT WITHIN REACH. WILL CONTINUE TO MONITOR ACCORDINGLY
[2022-02-12 08:00] VITALS: BP 111/79
[2022-02-12] MEDS: ASCORBIC ACID 500 MG TABLET PO SCH ×2 (08:29→16:20)
[2022-02-12] MEDS: AMLODIPINE BESYLATE 10 MG TABLET PO SCH (08:29)
[2022-02-12] MEDS: PHENOBARBITAL 30 MG TABLET PO SCH ×2 (08:30→16:20)
[2022-02-12] MEDS: CHOLECALCIFEROL 1,000 UNIT TABLET (VIT D3) PO SCH ×3 (08:30→16:20)
[2022-02-12] MEDS: ASPIRIN 81 MG TAB.CHEW PO SCH (08:30)
[2022-02-12] MEDS: LISINOPRIL (10MG) 10 MG TABLET PO SCH (08:30)
[2022-02-12] MEDS: POLYVINYL ALCOHOL 15 ML BOTTLE EACHEYE SCH ×2 (09:41→16:19)
[2022-02-12 16:00] VITALS: BP 126/75
[2022-02-12] MEDS: ENOXAPARIN SODIUM 40 MG/0.4 ML DISP.SYRIN SQ SCH (16:19)
[2022-02-12 18:22] VITALS: BP 128/78
--- NOTE | 2022-02-12 19:00 | NUR ---
MS ROOM SERVICE CLERK NOTES PATIENT DISCHARGE TO [facility] REPORT GIVEN TO RUKHSANA SCHILLING. ALERT ORIENTED X 2. NO ACUTE DISTRESS NOTED. BREATHING UNLABORED. DISCHARGE INSTRUCTIONS GIVEN TO THE EMT PERSONNEL TO BE HANDED OVER TO SNF PERSONNEL. DISCHARGE WITH NO IV ACCESS. ALL BELONGINGS ACCOUNTED FOR. SKIN IS INTACT. PICKED UP VIA AMBULANCE IN A GURNEY ACCOMPANIED BY 2 EMT PERSONNEL IN STABLE CONDITION
== END 2022-02-12 19:15 | DRG 640 ==
LOC: ER 12:28 → MED 15:54
PROVIDERS: ADMIT Internal Medicine
DX: R62.7 Adult failure to thrive (principal); G93.41 Metabolic encephalopathy; I69.354 Hemiplegia and hemiparesis following cerebral infarction affecting left non-dominant side; G40.909 Epilepsy, unspecified, not intractable, without status epilepticus; Z68.23 Body mass index [BMI] 23.0-23.9, adult; I69.320 Aphasia following cerebral infarction; Z20.822 Contact with and (suspected) exposure to COVID-19; E78.5 Hyperlipidemia, unspecified; J44.9 Chronic obstructive pulmonary disease, unspecified; I10 Essential (primary) hypertension; Z79.82 Long term (current) use of aspirin; D64.9 Anemia, unspecified; Z88.0 Allergy status to penicillin; Z88.8 Allergy status to other drugs, medicaments and biological substances; Z79.899 Other long term (current) drug therapy
CPT/HCPCS: 36415; 71045-TC; 80048-TC; 80053-TC; 80076-TC; 82962-TC; 83690-TC; 83735-TC; 84100-TC; 84484-TC; 85025-TC; 87081-TC; C9803; G0378; J0360; J1650; J3490; J7030; J7042